=== PATIENT | female | born 1950 | race African-American/Black ===

== ENCOUNTER 2020-01-14 06:46 | Day surgery (SDC) | payer MEDICARE ==
--- NOTE | 2020-01-09 13:38 | Opthalmology H&P ---
Ophthalmology H&P H&P Chief Complaint: decreased vision in left eye HPI Vision Affects Ability to: read, manage personal affairs HPI Narrative Blurry vision Exam Visual Acuity: OD 20/60 OS 20/80 Tension: OD 12 OS 13 Eye Exam: normal OU: external exam, palpebral fissure-width, marginal reflex distance, levator function, corneas, anterior chambers, fundus exam; findings: lens - NS Cataracts OU Assessment/Plan Treatment Plan: cataract extraction w/ lens implant Goals of Treatment: improvement of vision Attestation Attestation The risks and benefits of the surgery as well as alternative procedures were explained to the patient in detail. Jose E Price MD Jan 09, 2020 13:38
--- NOTE | 2020-01-09 13:40 | Pre-Procedure Note/Attestation ---
Pre-Procedure Note/Attestation Complete Prior to Procedure Planned Procedure: left Procedure Narrative: Cataract extraction with IOL implant left eye Indications for Procedure Pre-Operative Diagnosis: Nuclear sclerotic cataract left eye Attestation I attest that I discussed the nature of the procedure; its benefits; risks and complications; and alternatives (and the risks and benefits of such alternatives ), prior to the procedure, with the patient (or the patient's legal inside sales account representative). I attest that, if there was a reasonable possibility of needing a blood transfusion, the patient (or the patient's legal inside sales account representative) was given the [facility] standardized written summary, pursuant to the Raman Edel Blood Safety Act ([place] Health and Safety Code # 1645, as amended). I attest that I re-evaluated the patient just prior to the surgery and that there has been no change in the patient's H&P, except as documented below: Jose E Price MD Jan 09, 2020 13:40
[~2020-01-14] VITALS: Ht 182.9 cm; Wt 163.3 kg
[2020-01-14] VITALS (8 sets, daily range): BP systolic 152–196; BP diastolic 72–90
[~2020-01-14 06:46] MED LIST: ATORVASTATIN CA20 MG ORAL; CARVEDILOL25 MG ORAL; HYDRALAZINE HCL10 MG ORAL; LOSARTAN POTASS50 MG ORAL; OMEPRAZOLE20 M2 ORAL; SYNTHROID100 MCG ORAL; TRIAMTERENE-HC1 EAC7 ORAL; XARELTO20 MG ORAL
[2020-01-14] MEDS ORDERED: Akten 3.5% 1ml Btl LEFT EYE ONE (07:00)
[2020-01-14] MEDS ORDERED: Proparacaine 0.5% Opth Soln 15ml LEFT EYE ONE (07:00)
[2020-01-14] MEDS ORDERED: Tetracaine 0.5% Opth 4ml Soln LEFT EYE ONE (07:00)
[2020-01-14] MEDS: Cyclopentolate 1% Opth Sol 2ml LEFT EYE SCH ×3 (09:17→09:47)
[2020-01-14] MEDS: Diclofenac Sod 0.1% Op Soln LEFT EYE SCH ×3 (09:17→09:48)
[2020-01-14] MEDS: Tropicamide 1% Opth 15ml Soln LEFT EYE SCH ×3 (09:17→09:47)
[2020-01-14] MEDS: Phenylephrine 10% Opth Soln 5ml LEFT EYE SCH ×3 (09:17→09:47)
[2020-01-14] MEDS: Tobramycin Op Soln 0.3% 5ml LEFT EYE SCH ×3 (09:18→09:48)
[2020-01-14] MEDS ORDERED: EPINEPHrine 1mg/1ml Amp ONE (09:54)
[2020-01-14] MEDS ORDERED: BSS 500ml btl ONE (09:55)
[2020-01-14] MEDS ORDERED: Sodium Hyaluronate 10 mg/ml 0.85ml ONE (09:55)
[2020-01-14] MEDS ORDERED: BSS 15ml BTL ONE (09:55)
[2020-01-14] MEDS ORDERED: Povidone-Iodine 5% opth solution ONE (09:55)
--- NOTE | 2020-01-14 10:29 | Anethesia Preoperative Eval ---
Anesthesia Pre-op PMH/ROS General Date of Evaluation: Jan 14, 2020 Time of Evaluation: 10:25 Anesthesiologist: Gertrudis ASA Score: ASA 3 Mallampati Score Class I : Soft palate, uvula, fauces, pillars visible Class II: Soft palate, uvula, fauces visible Class III: Soft palate, base of uvula visible Class IV: Only hard plate visible Mallampati Classification: Class III Surgeon: Dee Diagnosis: Leye cataract Surgical Procedure: Cataract extraction Anesthesia History: none Family History: no anesthesia problems Allergies: Coded Allergies: No Known Allergies (Unverified , 01/09/20) Medications: see eMAR Patient NPO?: Yes Past Medical History Cardiovascular: Reports: HTN, other - CHF Pulmonary: Reports: LINUS; Denies: asthma, COPD, other Gastrointestinal/Genitourinary: Reports: GERD; Denies: CRI, ESRD, other Neurologic/Psychiatric: Reports: depression/anxiety; Denies: dementia, CVA, TIA, other Endocrine: Reports: DM - borderline; Denies: hypothyroidism, steroids, other HEENT: Reports: cataract (L), cataract (R) Hematology/Immune: Reports: DVT - h/o P/E anticoagulated; Denies: anemia, bleeding disorder, other Musculoskeletal/Integumentary: Reports: DJD Other: obesity PMH Narrative: as above PSxH Narrative: cholecystectomy Anesthesia Pre-op Phys. Exam Physician Exam Last Vital Signs Date Time Temp Pulse Resp B/P (MAP) Pulse Ox O2 Delivery O2 Flow Rate FiO2 01/14/20 09:48 Room Air 01/14/20 09:44 97.0 61 18 153/89 98 Constitutional: NAD Neurologic: CN 2-12 intact Cardiovascular: RRR, no M/R/G Respiratory: other - diminished breath sounds Gastrointestinal: other - morbid obesity Airway Exam Mallampati Score: Class III MO: limited Neck: short ROM: limited Teeth: missing Dentures: no upper, no lower Anesthesia Pre-op A/P Labs see chart Studies Pre-op Studies: EKG - SR Risk Assessment & Plan Assessment: ASA 3 Plan: MAC Status Change Before Surgery: Brandyn Patricia MD Jan 14, 2020 10:29
[2020-01-14] MEDS ORDERED: LR 1000ml 1,000 ML IVLG SCH (10:33)
[2020-01-14] MEDS ORDERED: fentaNYL 100 mcg/2 mL IV PRN (10:45)
[2020-01-14] MEDS ORDERED: acetaZOLAMIDE 500mg Inj ONE (10:49)
[2020-01-14] MEDS ORDERED: NS Irrig 1000ml ONE (11:00)
[2020-01-14] MEDS ORDERED: Dexamethasone 4mg/ml vial ONE (11:00)
[2020-01-14] MEDS ORDERED: LR 1000ml ONE (11:00)
[2020-01-14] MEDS ORDERED: fentaNYL 100 mcg/2 mL IV ONE (11:00)
[2020-01-14] MEDS ORDERED: prednisoLONE acetate 1% Opth Susp 1ml ONE (11:00)
[2020-01-14] MEDS ORDERED: Pilocarpine 1% Opth 15ml Soln ONE (11:00)
[2020-01-14] MEDS ORDERED: Polysporin Oint 15gm TOPIC ONE (11:00)
[2020-01-14] MEDS ORDERED: Sterile Water Irrig 1000ml IRRIG ONE (11:00)
[2020-01-14] MEDS ORDERED: Midazolam 2mg/2ml Inj ONE (11:00)
--- NOTE | 2020-01-14 12:19 | Immediate Post-Op Evaluation ---
Immediate Post-Op Evalulation Immediate Post-Op Evalulation Procedure: L eye cataract extraction with IOL Date of Evaluation: Jan 14, 2020 Time of Evaluation: 11:52 IV Fluids: 300 Blood Products: none Estimated Blood Loss: none Urinary Output: none Blood Pressure Systolic: 162 Blood Pressure Diastolic: 84 Pulse Rate: 62 Respiratory Rate: 20 O2 Sat by Pulse Oximetry: 99 Temperature (Fahrenheit): 97.5 Pain Score (1-10): 1 Nausea: No Vomiting: No Complications none Patient Status: awake, patent, none Hydration Status: adequate Brandyn Caba MD Jan 14, 2020 12:19
--- NOTE | 2020-01-14 12:20 | 48 Hour Post Anesthesia Eval ---
Post Anesthesia Evaluation Procedure: L eye cataract extraction with IOL Date of Evaluation: Jan 14, 2020 Time of Evaluation: 12:19 Blood Pressure Systolic: 164 0: 57 Pulse Rate: 68 Respiratory Rate: 20 Temperature (Fahrenheit): 97.6 O2 Sat by Pulse Oximetry: 98 Airway: patent Nausea: No Vomiting: No Pain Intensity: 1 Hydration Status: adequate Cardiopulmonary Status: stable Mental Status/LOC: patient returned to baseline Follow-up Care/Observations: n/a Post-Anesthesia Complications: none Follow-up care needed: ready to discharge Brandyn Caba MD Jan 14, 2020 12:20
--- NOTE | 2020-01-16 09:28 | Brief Operative Note ---
Immediate Post Operative Note Operative Note Chief Complaint: Blurry viision Pre-op Diagnosis: Nuclear sclerotic cataract left eye Procedure: Cataract extraction with IOL implant left eye Post-op Diagnosis: Pseudo OS Findings: consistent w/pre-op dx studies Surgeon: Jose E Price MD Anesthesiologist: Brandyn Caba MD Anesthesia: MAC Specimen: none Complications: none Condition: stable Fluids: LR Estimated Blood Loss: none Drains: none Implant(s) used?: Yes - IOL- OS Jose E Price MD Jan 16, 2020 09:28
--- NOTE | 2020-01-16 09:31 | Operative Note - PDOC ---
Operative Note Operative Note Date of Operation/Procedure: Jan 14, 2020 Chief Complaint: Blurry viision Pre-op Diagnosis: Nuclear sclerotic cataract left eye Procedure: Cataract extraction with IOL implant left eye Post-op Diagnosis: Pseudo OS Operative Findings: consistent w/pre-op dx studies Surgeon: Jose E Price MD Anesthesiologist: Brandyn Caba MD Anesthesia: MAC Specimen: none Complications: none Condition: stable Fluids: LR Estimated Blood Loss: none Drains: none Implant(s) used?: Yes - IOL-OS Indications for Procedure Nuclear sclerotic cataract left eye Description of Procedure This patient has been complaining visually significant cataract in the left eye with the best corrected visual acuity of 20/80 under moderate glare conditions worse. The patient complains of difficulties with glare in performing activities of daily living and wants to manage personal affairs with comfort and accuracy and see well enough to move with safety at home and outdoors. The risks, benefits and alternatives of the procedure were discussed with the patient in the office prior to scheduling surgery. All questions from the patient were answered after the surgical procedure was explained in detail. The risks of the procedure as explained to the patient include, but are not limited to, pain, infection, bleeding, loss of vision, retinal detachment, need for further surgery, loss of lens nucleus, double vision, etc. Alternative procedures were discussed which include, to do nothing or seek a second opinion. Informed consent for this procedure was obtained from the patient. The patient was referred to a primary care physician for a cardiopulmonary clearance prior to surgery, after proper evaluation was done patient was properly scheduled for outpatient surgery. The patient was brought to the operating room where the anesthesiologist established I.V. lines and cardiac monitoring leads. Mild intravenous sedation was administered. The patient was then prepared with a 5% solution of povidone -iodine to the conjunctival fornix and lashes, and a 5% solution of povidone- iodine to the lids and periorbital skin. The patient was then draped in the usual sterile fashion. A lid speculum was then placed in the operative eye. A keratome blade was then used to create a biplanar incision into the anterior chamber. Viscoelastics was then instilled into the anterior chamber. A capsulorrhexis was then fashioned with an utrata forceps. The lens nucleus was hydrodissected and hydrodelineated with a G 27 Cannula. Paracentesis incision was made at 3 o'clock with sharp blade. The phacoemulsification unit, after being properly adjusted and tested, was then used to emulsify the nucleus followed by aspiration and irrigation of residual cortical material. Healon was then instilled into the anterior chamber. The corneal wound was then enlarged to the size of the optic with the deb keratome blade. The intraocular lens was then inspected for right power and size and thought to be satisfactory. Then the lens was gently placed in the capsular bag. Positioning within the capsular bag was confirmed by direct visualization. Optic centration was accomplished with a Sinskey hook. Viscoelastics was removed from the anterior chamber using the irrigation and aspiration unit. The corneal wound was then tested for leaks and none were found. The lid speculum were then removed. Sponge and needle counts were correct. An eye patch and shield were placed over the operative eye. The patient was taken to the recovery room in stable condition. There were no complications. The patient tolerated the procedure well. The patient was then transferred to the ambulatory surgery unit in stable and satisfactory condition , was given detailed written instructions and asked to follow up in the office the next day. Jose E Price MD Jan 16, 2020 09:31
== END 2020-01-14 13:10 | disposition home or self-care (01) ==
LOC: SUR 06:46 → EDSEX 07:30 → SUR 13:10
DX: H25.12 Age-related nuclear cataract, left eye (principal); I10 Essential (primary) hypertension; I11.0 Hypertensive heart disease with heart failure; I50.9 Heart failure, unspecified; G47.33 Obstructive sleep apnea (adult) (pediatric); K21.9 Gastro-esophageal reflux disease without esophagitis; F32.9 Major depressive disorder, single episode, unspecified; F41.9 Anxiety disorder, unspecified; E11.9 Type 2 diabetes mellitus without complications; Z86.711 Personal history of pulmonary embolism; Z86.718 Personal history of other venous thrombosis and embolism; Z79.01 Long term (current) use of anticoagulants; Z90.49 Acquired absence of other specified parts of digestive tract; E66.9 Obesity, unspecified; Z68.41 Body mass index [BMI] 40.0-44.9, adult
CPT/HCPCS: 66984; J0171; J1100; J1120; J2250; J3010; J3370; J7120; V2632; 94003; 94150